=== PATIENT | female | born 1960 | race Caucasian/White ===

== ENCOUNTER 2017-10-03 06:51 | Day surgery (SDC) | payer OTHER ==
[2017-10-03 07:19] VITALS: BMI 33.9
[2017-10-03] MEDS ORDERED: Propofol 10 mg/ml Inj (20 ML) ONE ×2 (09:09→09:18)
[2017-10-03] MEDS ORDERED: Midazolam 2 MG/2 ML VIAL ONE (09:10)
--- NOTE | 2017-10-03 09:18 | CP.SDSHP ---
Same Day Surgery H & P - History Proposed Procedure: colonoscopy, screening Pre-Op Diagnosis: Screening for colon cancer - Previous Medical/Surgical History Cardiac: Hypertension, Other (hyperlipidemia, Gerd, hiatal hernia) Endocrine/Metabolic: Diabetes, Obesity - Allergies Allergies: Allergies aspirin Allergy (Verified 06/06/16 09:48) SWELLING iodine Allergy (Verified 06/06/16 09:48) SWELLING Penicillins Allergy (Verified 06/06/16 09:48) SWELLING shrimp Allergy (Verified 06/06/16 09:48) SWELLING - Physical Exam General Appearance: Morbidly obese Vital Signs: Vital Signs 10/03/17 07:19 Temperature 97.7 F Pulse Rate 80 Respiratory 20 Rate Blood Pressure 131/89 O2 Sat by Pulse 98 Oximetry Mental Status: Alert & Oriented x3 Neuro: WNL Heart: WNL Lungs: WNL GI: WNL - Impression Impression: Screening for colon cancer Pt. Evaluated Today:Candidate for Anesthesia & Procedure: Yes - Date & Time Date: 10/03/17 Time: 09:18 Short Stay Discharge - Short Stay Discharge Admitting Diagnosis/Reason for Visit: ENCOUNTER FOR SCREENING Disposition: HOME/ ROUTINE
[2017-10-03] MEDS ORDERED: Lactated Ringer's 500 ML IV ONE (09:20)
[2017-10-03 09:23] VITALS: O2SAT 100
[2017-10-03 09:55] VITALS: TEMP 98.4
[2017-10-03 10:32] VITALS: BP 122/73; PULSE 76; RESP 19
== END 2017-10-03 11:10 | disposition home or self-care (01) ==
LOC: C.ENDO 06:51
PROVIDERS: ATTEND Internal Medicine Gastroenterology
DX: D12.4 Benign neoplasm of descending colon (principal); K64.8 Other hemorrhoids
CPT/HCPCS: 45388; 82948; 88305; J2250; J2704; J7120

== ENCOUNTER 2018-07-07 18:25 | Emergency (ER) | payer OTHER ==
[2018-07-07 18:26] VITALS: BMI 33.9
--- NOTE | 2018-07-07 19:13 | C.PDOC ---
History Of Present Illness 57-year-old female, PMHx includes Diabetes, presents to the emergency department for evaluation of neck swelling that developed gradually over the past week associated with discomfort on swallowing. Otherwise, Patient denies any trauma, injury, fever, chills, dizziness, headache, drooling, dyspnea, CP, SOB, wheezing, cough, abd. pain, N/V/D, denies any other active complaints. Ambulate to Ed for evlauation, not in any apparent distress. Time Seen by Provider: 07/07/18 18:48 Chief Complaint (Nursing): ENT Problem History Per: Patient History/Exam Limitations: None Current Symptoms Are (Timing): Still Present Past Medical History Reviewed: Historical Data, Nursing Documentation, Vital Signs Vital Signs: Last Vital Signs Temp 98.6 F 07/07/18 18:39 Pulse 75 07/07/18 18:39 Resp 18 07/07/18 18:39 BP 116/76 07/07/18 18:39 Pulse Ox 96 07/07/18 18:39 - Medical History PMH: Anxiety, Depression, Diabetes, Gastritis, HTN, Hypercholesterolemia Surgical History: Endoscopy Family History: States: No Known Family Hx - Social History Hx Tobacco Use: Yes Hx Alcohol Use: No Hx Substance Use: No - Immunization History Hx Tetanus Toxoid Vaccination: No Hx Influenza Vaccination: No Hx Pneumococcal Vaccination: No Review Of Systems Except As Marked, All Systems Reviewed And Found Negative. Constitutional: Negative for: Fever, Chills Eyes: Negative for: Vision Change ENT: Positive for: Other (trouble swallowing). Negative for: Ear Discharge, Nose Discharge, Mouth Pain, Mouth Swelling, Throat Pain, Throat Swelling Cardiovascular: Negative for: Chest Pain, Palpitations, Edema, Light Headedness Respiratory: Negative for: Cough, Shortness of Breath, Wheezing Gastrointestinal: Negative for: Nausea, Vomiting, Abdominal Pain, Diarrhea Genitourinary: Negative for: Dysuria Musculoskeletal: Positive for: Neck Pain Skin: Negative for: Rash Neurological: Negative for: Weakness, Numbness, Altered Mental Status, Headache, Dizziness Physical Exam - Physical Exam Appears: Well, Non-toxic, No Acute Distress Skin: Normal Color, Warm, Dry Head: Normacephalic Eye(s): bilateral: PERRL Ear(s): Bilateral: Normal Nose: No Discharge Oral Mucosa: Moist, No Drooling, No Trismus Tongue: No Swelling, No Lesions Throat: No Erythema, No Drooling, Other (uvula midline, no edema.) Neck: Normal ROM, Trachea Midline, No Midline Cervical Tenderness, No Paracervical Tenderness, No Step Off Deformity, Supple, Other (soft neck edema noted to anterior base of neck. NO skin changes, no palpable defomrity.) Lymphatic: No Adenopathy Cardiovascular: Rhythm Regular, No Murmur, No JVD Respiratory: No Decreased Breath Sounds, No Accessory Muscle Use, No Stridor, No Wheezing Gastrointestinal/Abdominal: Soft, No Tenderness, No Distention, No Guarding Back: No CVA Tenderness Extremity: Normal ROM, No Tenderness, No Deformity, No Swelling Neurological/Psych: Oriented x3, Normal Speech, Normal Motor, Normal Sensation, Normal Reflexes ED Course And Treatment - Laboratory Results Result Diagrams: 07/07/18 19:22 07/07/18 19:22 O2 Sat by Pulse Oximetry: 96 Pulse Ox Interpretation: Normal - Radiology CXR: Interpreted by Me, Viewed By Me CXR Interpretation: Yes: No Acute Disease - CT Scan/US CT neck and chest w/o contrast Other Rad Studies (CT/US): Radiology Report Reviewed CT/US Interpretation: thyroid midline. Mild enlarged lymph nodes submand B/L. Chest-no acute abnormalities. Progress Note: On re-eval, pt remained tsable. Afebrile, hemodynamicaly stable. Non-toxic. Tolerate PO well in Ed. PulsEOx 96% RA. neck; Supple, (-) JVD, (-) carotid bruits B/L. ENT: no acute findings, uvula midline, no edema. Lungs: CTA B/L, BS equal B/L. CVS: (+)S1S, reg. Abd: benign. Neuorlogicaly intact. Blood owrk review and appears noraml. CT of neck and chest w/o contrast ( pt has allergy to contrast) performend and appears without acute abnoramlities. results review and discussed with pt. Pt advised to F/U with PMD in 2-3 days for re-eval. return if any new changes. Disposition Counseled Patient/Family Regarding: Studies Performed, Diagnosis, Need For F ollowup - Disposition Referrals: Hanane Pate APN [Advanced Practice Nurse] - Disposition: HOME/ ROUTINE Disposition Time: 21:05 Condition: STABLE Additional Instructions: Encourage fluids Follow up with PMD for further evaluation, MRI of neck, treatment as need return to Ed if any worsening or new changes. Instructions: Dysphagia Forms: [facility] (Macedonian) - Clinical Impression Clinical Impression: Dysphagia - Scribe Statement The provider has reviewed the documentation as recorded by the Scribe (Jessica muñoz) All medical record entries made by the Scribe were at my direction and personally dictated by me. I have reviewed the chart and agree that the record accurately reflects my personal performance of the history, physical exam, medical decision making, and the department course for this patient. I have also personally directed, reviewed, and agree with the discharge instructions and disposition.
[2018-07-07 19:26] LABS: BASO % 0.6 % (0.0-2.0); EOS # 0.2 K/uL (0.0-0.7); EOS % 2.9 % (0.0-4.0); HEMOGLOBIN 12.7 g/dL (11.0-16.0); LYMPH # 2.9 K/uL (1.0-4.3); LYMPH % 37.3 % (20.0-40.0); MEAN CELL VOLUME 89.6 fL (81.0-99.0); MEAN CORPUSCULAR HEMOGLOBIN 29.8 pg (27.0-31.0); MEAN CORPUSCULAR HGB CONC 33.3 g/dL (33.0-37.0); MEAN PLATELET VOLUME 7.8 fL (7.2-11.7); MONO # 0.4 K/uL (0.0-0.8); MONO % 5.1 % (0.0-10.0); NEUT # 4.1 K/uL (1.8-7.0); NEUT % 54.1 % (50.0-75.0); NRBC % 0.1 % (0.0-2.0); RBC 4.27 Mil/uL (3.80-5.20); RED CELL DISTRIBUTION WIDTH 13.4 % (11.5-14.5); WHITE BLOOD COUNT 7.6 K/uL (4.8-10.8)
[2018-07-07 19:28] LABS: SQUAMOUS EPITHIAL 2 /hpf (0-5); URINE BACTERIA RARE (<OCC); URINE BILIRUBIN NEGATIVE (NEGATIVE); URINE BLOOD NEGATIVE (NEGATIVE); URINE CLARITY Clear (Clear); URINE COLOR Yellow (YELLOW); URINE GLUCOSE (UA) 1+ mg/dL (Normal); URINE LEUKOCYTE ESTERASE NEG Leu/uL (Negative); URINE PROTEIN NEGATIVE (NEGATIVE); URINE UROBILINOGEN NORMAL mg/dL (0.2-1.0)
[2018-07-07 19:37] LABS: INR 1.1; PROTHROMBIN TIME 12.5 SECONDS (9.7-12.2)
[2018-07-07 19:38] LABS: BLOOD UREA NITROGEN 15 mg/dL (7-17); GFR NON-AFRICAN AMERICAN > 60
[2018-07-07 21:23] VITALS: BP 142/89; PULSE 85; RESP 16; TEMP 97.8; O2SAT 98
--- NOTE | 2018-07-08 09:44 | RAD ---
HISTORY: Shortness of breath COMPARISON: 03/13/2015. TECHNIQUE: Chest PA and lateral FINDINGS: LINES AND TUBES: None. LUNG AND PLEURA: The lungs are well inflated and clear. No pleural effusion or pneumothorax. HEART AND MEDIASTINUM: The heart is not enlarged. The hilar and mediastinal contours are within normal limits. SKELETAL STRUCTURES: The bony structures are within normal limits for the patient's age. VISUALIZED UPPER ABDOMEN: Normal. OTHER FINDINGS: None. IMPRESSION: No active pulmonary disease.
--- NOTE | 2018-07-08 11:30 | CT ---
Date of service: 07/07/2018 PROCEDURE: CT NECK WITHOUT CONTRAST HISTORY: Right neck mass COMPARISON: None available. TECHNIQUE: CT of the neck without intravenous contrast. Coronal and sagittal reformats generated. Radiation dose: DLP 540.14 mGy-cm This CT exam was performed using one or more of the following dose reduction techniques: Automated exposure control, adjustment of the mA and/or kV according to patient size, and/or use of iterative reconstruction technique.. FINDINGS: Note that the study is limited due to the lack of circulating intravenous contrast material. NASOPHARYNX: Unremarkable. SUPRAHYOID NECK: Unremarkable oropharynx, oral cavity, parapharyngeal space and retropharyngeal space. INFRAHYOID NECK: Unremarkable larynx, hypopharynx, and supraglottic space. Vocal cords intact. MASS: No large cervical masses or collections.. GLANDS: Parotid and submandibular glands unremarkable. Normal size thyroid gland, without nodule. LYMPH NODES: There arm of multiple small nonspecific bilateral cervical lymph nodes (level 1 and level 2). Largest right-sided submandibular lymph node measures approximately 15.2 by 5.9 mm the largest left-sided submandibular lymph node measures approximately 8 mm. CERVICAL SPINE: No fracture or focal lesion. OTHER FINDINGS: Minor partially calcified atherosclerotic plaque seen at the level of the carotid bifurcations and proximal internal carotid artery right larger than left. Minor mucosal thickening in the inferior margins both maxillary antra IMPRESSION: Limited CT scan of the neck as above. No large cervical masses or collections. Multiple small nonspecific bilateral cervical lymph nodes
--- NOTE | 2018-07-08 13:04 | CT ---
Date of service: 07/07/2018 PROCEDURE: CT Chest without contrast HISTORY: RIGHT SIDE NECK MASS COMPARISON: None available. TECHNIQUE: Contiguous axial images were obtained through the chest without intravenous contrast enhancement. Sagittal and coronal reconstructions were performed. Radiation dose (DLP): 601.32 mGy-cm. This CT exam was performed using one or more of the following dose reduction techniques: Automated exposure control, adjustment of the mA and/or kV according to patient size, and/or use of iterative reconstruction technique. FINDINGS: LUNGS: No focal consolidation. Minimal bleb changes right posterior lung apex. MEDIASTINUM: Heart size is within range of normal. No significant pericardial effusion. Ascending thoracic aorta measures approximately 3.3 cm and descending thoracic aorta measures approximately 2.5 cm. Pulmonary trunk measures approximately 2.5 cm. Few small nonspecific mediastinal lymph nodes are present. Evaluation for hilar adenopathy is limited due to the lack of circulating intravenous contrast material. The Central airways midline and patent. No large central endoluminal lesions. Small hiatal hernia. PLEURA: No pleural fluid. No pneumothorax. BONES: Mild multilevel degenerative spondylosis of the thoracic spine. UPPER ABDOMEN: Moderate to significant fatty hepatic infiltration. There is a discrete area of homogeneous increased density in the left lobe which could represent of some fatty sparing however possibility of a hemangioma cannot be completely excluded. Recommend nonemergent triple phase CT scan of the liver. OTHER FINDINGS: None. IMPRESSION: No acute intra thoracic abnormalities. Moderate to significant fatty hepatic infiltration. There is a large homogeneous area of a increased attenuation left lobe liver that probably represents an area of fatty sparing however follow-up on triple phase CT scan liver could be performed for further evaluation and confirmation.
== END 2018-07-07 21:23 | disposition home or self-care (01) ==
LOC: C.ER 18:25
DX: R13.10 Dysphagia, unspecified (principal); E11.9 Type 2 diabetes mellitus without complications; E78.00 Pure hypercholesterolemia, unspecified; I10 Essential (primary) hypertension; Z72.0 Tobacco use

== ENCOUNTER → 2018-09-16 | Day surgery (SDC) | payer OTHER ==
--- NOTE | 2018-09-16 11:18 | CP.SDSHP ---
Same Day Surgery H & P - History Proposed Procedure: US guided FNA of neck mass Pre-Op Diagnosis: Cervical lymph adenopathy - Allergies Allergies: Allergies aspirin Allergy (Verified 07/07/18 18:37) SWELLING iodine Allergy (Verified 07/07/18 18:37) SWELLING Penicillins Allergy (Verified 07/07/18 18:37) SWELLING shrimp Allergy (Verified 07/07/18 18:37) SWELLING - Physical Exam Mental Status: Alert & Oriented x3 - Impression Impression: US of pt's neck showed several subcentimeter level 1,II nodes. There was a larger 12 mm node adjacent to carotid artery. This was too high risk to perform FNA on. No FNA performed because of lack of enlarged nodes. Short Stay Discharge - Short Stay Discharge Admitting Diagnosis/Reason for Visit: DX: NECK MASS BX Disposition: HOME/ ROUTINE
--- NOTE | 2018-09-16 13:27 | US ---
Date of service: 09/16/2018 PROCEDURE: Limited ultrasound of neck for purposes of biopsy. HISTORY: RT SUBMANDIBULAR LYMPH NODE COMPARISON: TECHNIQUE: FINDINGS: Limited ultrasound right and left ankle performed. Multiple subcentimeter lymph nodes are present throughout the neck. The lymph nodes are too small for FNA. IMPRESSION: Several subcentimeter cervical lymph nodes there are too small for FNA. Recommend 3 or 6 month repeat ultrasound.
== END | disposition home or self-care (01) ==
LOC: C.SPRAD 09:18
PROVIDERS: ATTEND Radiology Vascular & Interventional Radiology
DX: R22.1 Localized swelling, mass and lump, neck (principal); Z88.0 Allergy status to penicillin

== ENCOUNTER 2019-01-01 06:58 | Day surgery (SDC) | payer OTHER ==
[2019-01-01 07:19] VITALS: BMI 33.4
--- NOTE | 2019-01-01 09:01 | CP.SDSHP ---
Same Day Surgery H & P - History Proposed Procedure: egd - Previous Medical/Surgical History Cardiac: Other (hyperlipidemia, gerd, hiatal hernia) Endocrine/Metabolic: Diabetes, Obesity Misc: Other (colon polyps, hiatal hernia, gastirits, gerd, HERNANDEZ ) Previous Surgical History: Denies - Allergies Allergies: Allergies aspirin Allergy (Verified 07/07/18 18:37) SWELLING iodine Allergy (Verified 07/07/18 18:37) SWELLING Penicillins Allergy (Verified 07/07/18 18:37) SWELLING shrimp Allergy (Verified 07/07/18 18:37) SWELLING - Physical Exam Vital Signs: Vital Signs 01/01/19 07:19 Temperature 97.8 F Pulse Rate 87 Respiratory 18 Rate Blood Pressure 130/75 O2 Sat by Pulse 97 Oximetry Mental Status: Alert & Oriented x3 Neuro: WNL Heart: WNL Lungs: WNL GI: WNL - Impression Impression: epigastric pain. heartburn Pt. Evaluated Today:Candidate for Anesthesia & Procedure: Yes - Date & Time Date: 01/01/19 Time: 09:01 Short Stay Discharge - Short Stay Discharge Admitting Diagnosis/Reason for Visit: EPIGASTRIC PAIN, HEARTBURN, GERD Disposition: HOME/ ROUTINE
[2019-01-01 09:30] VITALS: TEMP 97.6
[2019-01-01 09:56] VITALS: O2SAT 98
[2019-01-01 10:17] VITALS: BP 129/74; PULSE 85; RESP 18
== END 2019-01-01 10:14 | disposition home or self-care (01) ==
LOC: C.ENDO 06:58
PROVIDERS: ATTEND Internal Medicine Gastroenterology
DX: R10.13 Epigastric pain (principal); R12 Heartburn; K75.81 Nonalcoholic steatohepatitis (NASH); K21.0 Gastro-esophageal reflux disease with esophagitis; E66.01 Morbid (severe) obesity due to excess calories; K31.7 Polyp of stomach and duodenum; K29.70 Gastritis, unspecified, without bleeding

== ENCOUNTER 2019-01-13 08:02 | Outpatient (CLI) | payer OTHER | END 2019-01-13 08:03 | disposition home or self-care (01) | LOC: C.USIC 08:02 | DX: R22.1 Localized swelling, mass and lump, neck (principal); K75.81 Nonalcoholic steatohepatitis (NASH) ==

== ENCOUNTER 2019-01-13 09:22 | Emergency (ER) | payer OTHER ==
[2019-01-13 09:22] VITALS: BMI 33.4
[2019-01-13 09:40] VITALS: BP 127/84; PULSE 68; RESP 18; TEMP 98.4; O2SAT 98
[2019-01-13] MEDS ORDERED: Lidocaine 5% Patch TD STA (10:19)
--- NOTE | 2019-01-13 10:21 | C.PDOC ---
History Of Present Illness 58 year old female presents to ED with complaint of left posterior shoulder pain and left knee pain for the past 3 days. Patient admits to a PMHx of arthritis. Patient has a PMD, but was already here for outpatient testing and states she wanted to get checked out. Patient denies fall, injuries, fever, or rash. Time Seen by Provider: 01/13/19 09:44 Chief Complaint (Nursing): Back Pain History Per: Patient History/Exam Limitations: no limitations Onset/Duration Of Symptoms: Days (3) Current Symptoms Are (Timing): Still Present Quality Of Discomfort: "Pain" Previous Symptoms: None Associated Symptoms: denies: New Weakness, New Numbness Past Medical History Reviewed: Historical Data, Nursing Documentation, Vital Signs Vital Signs: Last Vital Signs Temp 98.4 F 01/13/19 09:36 Pulse 68 01/13/19 09:36 Resp 18 01/13/19 09:36 BP 127/84 01/13/19 09:36 Pulse Ox 98 01/13/19 09:36 - Medical History PMH: Anxiety, Arthritis, Depression, Diabetes, Gastritis, HTN, Hypercholesterolemia Denies: Chronic Kidney Disease Surgical History: Endoscopy Family History: States: Unknown Family Hx - Social History Hx Tobacco Use: Yes Hx Alcohol Use: No Hx Substance Use: No - Immunization History Hx Tetanus Toxoid Vaccination: No Hx Influenza Vaccination: Yes Hx Pneumococcal Vaccination: No Review Of Systems Constitutional: Negative for: Fever, Weakness Musculoskeletal: Positive for: Shoulder Pain (left posterior shoulder), Leg Pain (left knee pain) Skin: Negative for: Rash Neurological: Negative for: Weakness, Numbness Physical Exam - Physical Exam Appears: Well, Non-toxic, No Acute Distress Skin: Normal Color, Warm, Dry Head: Atraumatic, Normacephalic Neck: Normal ROM, Supple Chest: Symmetrical, No Deformity Cardiovascular: Rhythm Regular, No Murmur Respiratory: No Accessory Muscle Use, No Rales, No Rhonchi, No Wheezing Extremity: Normal ROM, No Calf Tenderness, Capillary Refill (<2 seconds), No Deformity, No Swelling, Other (left posterior shoulder tender to palpation, no rashes, ROM intact; left knee tender to palpation) Pulses: Left Radial: Normal, Right Radial: Normal, Left Dorsalis Pedis: Normal, Right Dorsalis Pedis: Normal Neurological/Psych: Oriented x3, Normal Speech, Normal Cognition, Normal Sensation Gait: Steady ED Course And Treatment O2 Sat by Pulse Oximetry: 98 (in RA) Progress Note: Patient given tylenol PO and a lidoderm patch. Re-evaluation. Patient feels better. Discussed plan with patient who expresses understanding. All questions answered and there is agreement with the plan to discharge home with instructions. Patient stable for discharge. Return if symptoms persist or worsen. Disposition Counseled Patient/Family Regarding: Diagnosis, Need For Followup, Rx Given - Disposition Referrals: Hanane Pate APN [Advanced Practice Nurse] - Disposition: HOME/ ROUTINE Disposition Time: 10:25 Condition: STABLE Additional Instructions: FOLLOW UP WITH YOUR DOCTOR/CLINIC IN 1-2 DAYS USE MEDICATIONS DIRECTED RETURN TO EMERGENCY ROOM IF SYMPTOMS BECOME WORSE SEGUIR CON WARNER MDICO / CLNICA EN 1-2 LEE UTILICE MEDICAMENTOS JUAN SE DIRIGE VUELVA A LA SALMA DE EMERGENCIA SI LOS SNTOMAS SE HACEN PEOR Prescriptions: Acetaminophen [Tylenol 325mg tab] 650 mg PO Q6 PRN #30 tab PRN Reason: pain/fever Instructions: Knee Sprain (DC), Shoulder Sprain (DC) Forms: [employer] (Greenlandic) Print Language: BURMESE - POA Present On Arrival: None - Clinical Impression Clinical Impression: Pain in left shoulder, Left knee sprain - Scribe Statement The provider has reviewed the documentation as recorded by the Scribe (Nadia Florez) All medical record entries made by the Scribe were at my direction and personally dictated by me. I have reviewed the chart and agree that the record accurately reflects my personal performance of the history, physical exam, medical decision making, and the department course for this patient. I have also personally directed, reviewed, and agree with the discharge instructions and disposition.
[2019-01-13] MEDS ORDERED: Lidocaine 5% Patch TD ONE (10:25)
== END 2019-01-13 10:24 | disposition home or self-care (01) ==
LOC: C.ER 09:22
DX: S83.92XA Sprain of unspecified site of left knee, initial encounter (principal); X58.XXXA Exposure to other specified factors, initial encounter; M25.512 Pain in left shoulder